=== PATIENT | female | born 1995 | race Caucasian/White ===

== ENCOUNTER 2016-10-11 10:35 | Emergency (ER) | payer OTHER ==
[2016-03-12 05:11] VITALS: BMI 25.6
[~2016-10-11 10:35] MED LIST: FERROUS SULFAT325 MG PO; HYDROCODON-ACE1 EAC7 PO; IBUPROFEN600 MG PO; PRENATAL COMPLE1 TAB PO
[2016-10-11 12:17] LABS: BASOPHILS 0.5 % (0-2); HEMATOCRIT 41.5 % (36.0-48.0); HEMOGLOBIN 14.7 g/dL (12-16); LYMPHOCYTES 30.8 % (15-50); MCH 32.2 pg (26.0-34.0); MCHC 35.4 g/dL (31.0-37.0); MEAN PLATELET VOLUME 10.7 fL (7.4-10.4); MONOCYTES 7.1 % (2-11); NEUTROPHILS 59.6 % (40-80); RBC 4.56 10x6/uL (4.00-5.40); RDW 12.3 % (11.5-14.5); WBC 5.9 10x3/uL (4.8-10.8)
[2016-10-11 12:18] LABS: PLATELET COUNT 237 10x3/uL (130-400)
[2016-10-11 12:37] LABS: HCG SERUM NEGATIVE (NEGATIVE)
[2016-10-11 12:37] LABS: APPEARANCE CLEAR (CLEAR); BILIRUBIN NEGATIVE (NEGATIVE); COLOR DK YELLOW (YELLOW); GLUCOSE NEGATIVE (NEGATIVE); KETONE NEGATIVE (NEGATIVE); LEUKOCYTE ESTERASE NEGATIVE (NEGATIVE); NITRITE NEGATIVE (NEGATIVE); PROTEIN TRACE mg/dL (NEGATIVE); UROBILINOGEN NORMAL (NORMAL)
[2016-10-11 12:40] LABS: ALBUMIN 4.4 g/dL (3.4-5.0); ALKALINE PHOSPHATASE 74 U/L (46-116); ALT (SGPT) 21 U/L (10-68); BILIRUBIN - TOTAL 0.73 mg/dL (0.2-1.3); CALC OSMOLALITY 277 mosm/kg (275-300); CALCIUM 9.4 mg/dL (8.5-10.1); CARBON DIOXIDE 25.1 mmol/L (21.0-32.0); CHLORIDE - SERUM 106 mmol/L (98-107); CREATININE - SERUM 0.8 mg/dL (0.6-1.3); GLUCOSE 106 mg/dL (74-106); POTASSIUM - SERUM 4.4 mmol/L (3.5-5.1); PROTEIN - SERUM 7.7 g/dL (6.4-8.2); SODIUM 140 mmol/L (136-145); UREA NITROGEN 10 mg/dL (7-18); eGFR NON AFRICAN AMERICAN > 90 mL/min (90-120)
[2016-10-11 12:40] LABS: RED CELLS - URINE 0-5 /hpf (0-5); WHITE CELLS - URINE NSEEN /hpf (0-5)
[2016-10-11 12:41] LABS: BACTERIA NONE SEEN /hpf (NONE SEEN); EPITHELIAL CELLS NSEEN /hpf (0-5)
== END 2016-10-11 15:31 | disposition home or self-care (01) ==
LOC: D.ER 10:35
PROVIDERS: Emergency Medicine
DX: N73.0 Acute parametritis and pelvic cellulitis (principal); N76.0 Acute vaginitis; F17.200 Nicotine dependence, unspecified, uncomplicated

== ENCOUNTER 2017-01-06 23:42 | Emergency (ER) | payer OTHER ==
[2016-03-12 05:11] VITALS: BMI 25.6
== END 2017-01-07 01:11 | disposition home or self-care (01) ==
LOC: D.ER 23:42
DX: N93.9 Abnormal uterine and vaginal bleeding, unspecified (principal); F17.200 Nicotine dependence, unspecified, uncomplicated

== ENCOUNTER 2017-05-08 11:11 | Emergency (ER) | payer SELFPAY ==
[2016-03-12 05:11] VITALS: BMI 25.6
== END 2017-05-08 11:21 | disposition home or self-care (01) ==
LOC: D.ER 11:11
DX: Z02.9 Encounter for administrative examinations, unspecified (principal)

== ENCOUNTER 2017-12-08 19:37 | Emergency (ER) | payer MEDICAID ==
[~2017-12-08] VITALS: Ht 157.5 cm; Wt 54.4 kg
[2017-12-08 20:10] VITALS: Ht 157.5 cm; Wt 54.4 kg
[2017-12-08 20:47] LABS: BASOPHILS 0.3 % (0-2); EOSINOPHILS 1.3 % (0-7); HEMATOCRIT 42.7 % (36.0-48.0); HEMOGLOBIN 15.6 g/dL (12-16); IMMATURE GRANULOCYTES 0.3 % (0-5); LYMPHOCYTES 21.2 % (15-50); MCH 32.8 pg (26.0-34.0); MCHC 36.5 g/dL (31.0-37.0); MCV 89.9 fL (80.0-100.0); MEAN PLATELET VOLUME 10.6 fL (7.4-10.4); MONOCYTES 3.8 % (2-11); NEUTROPHILS 73.1 % (40-80); PLATELET COUNT 269 10x3/uL (130-400); RBC 4.75 10x6/uL (4.00-5.40); RDW 12.3 % (11.5-14.5); WBC 9.8 10x3/uL (4.8-10.8)
[2017-12-08 20:49] LABS: APPEARANCE CLEAR (CLEAR); BILIRUBIN NEGATIVE (NEGATIVE); COLOR YELLOW (YELLOW); GLUCOSE NEGATIVE (NEGATIVE); KETONE NEGATIVE (NEGATIVE); NITRITE NEGATIVE (NEGATIVE); PROTEIN NEGATIVE (NEGATIVE); UROBILINOGEN NORMAL (NORMAL)
[2017-12-08 20:51] LABS: WHITE CELLS - URINE 0-5 /hpf (0-5)
[2017-12-08 20:52] LABS: BACTERIA FEW /hpf (NONE SEEN); EPITHELIAL CELLS 0-5 /hpf (0-5); RED CELLS - URINE 0-5 /hpf (0-5)
[2017-12-08 21:01] LABS: HCG SERUM POSITIVE (NEGATIVE)
[2017-12-08 21:21] LABS: ALBUMIN 4.4 g/dL (3.4-5.0); ALKALINE PHOSPHATASE 64 U/L (46-116); ALT (SGPT) 23 U/L (10-68); BILIRUBIN - TOTAL 0.63 mg/dL (0.2-1.3); CALC OSMOLALITY 264 mosm/kg (275-300); CALCIUM 8.4 mg/dL (8.5-10.1); CARBON DIOXIDE 26.1 mmol/L (21.0-32.0); CHLORIDE - SERUM 98 mmol/L (98-107); CREATININE - SERUM 0.9 mg/dL (0.6-1.3); GLUCOSE 135 mg/dL (74-106); LIPASE 80 U/L (73-393); POTASSIUM - SERUM 3.8 mmol/L (3.5-5.1); SODIUM 132 mmol/L (136-145); UREA NITROGEN 8 mg/dL (7-18); eGFR NON AFRICAN AMERICAN 83 mL/min (90-120)
[2017-12-08 21:41] VITALS: BP 154/87
== END 2017-12-08 21:42 | disposition home or self-care (01) ==
LOC: D.ER 19:37
PROVIDERS: Family Medicine
DX: Z33.1 Pregnant state, incidental (principal); R11.10 Vomiting, unspecified

== ENCOUNTER 2017-12-28 17:30 | Emergency (ER) | payer MEDICAID ==
[~2017-12-28] VITALS: Ht 157.5 cm; Wt 54.5 kg
[2017-12-28 17:37] VITALS: Ht 157.5 cm; Wt 54.5 kg
[2017-12-28 18:23] LABS: APPEARANCE SL CLDY (CLEAR); BILIRUBIN NEGATIVE (NEGATIVE); COLOR STRAW (YELLOW); GLUCOSE NEGATIVE (NEGATIVE); KETONE NEGATIVE (NEGATIVE); NITRITE NEGATIVE (NEGATIVE); PROTEIN NEGATIVE (NEGATIVE); SPECIFIC GRAVITY 1.005 (1.005-1.020); UROBILINOGEN NORMAL (NORMAL)
[2017-12-28 18:26] LABS: BACTERIA FEW /hpf (NONE SEEN); EPITHELIAL CELLS 0-5 /hpf (0-5); WHITE CELLS - URINE 0-5 /hpf (0-5)
[2017-12-28 18:27] LABS: BASOPHILS 0.3 % (0-2); EOSINOPHILS 1.6 % (0-7); HEMATOCRIT 37.3 % (36.0-48.0); HEMOGLOBIN 13.6 g/dL (12-16); IMMATURE GRANULOCYTES 0.2 % (0-5); LYMPHOCYTES 27.8 % (15-50); MCH 32.8 pg (26.0-34.0); MCHC 36.5 g/dL (31.0-37.0); MCV 89.9 fL (80.0-100.0); MEAN PLATELET VOLUME 10.3 fL (7.4-10.4); MONOCYTES 5.7 % (2-11); NEUTROPHILS 64.4 % (40-80); PLATELET COUNT 236 10x3/uL (130-400); RBC 4.15 10x6/uL (4.00-5.40); RDW 12.8 % (11.5-14.5); WBC 9.5 10x3/uL (4.8-10.8)
[2017-12-28 18:51] LABS: ALBUMIN 3.9 g/dL (3.4-5.0); ALKALINE PHOSPHATASE 46 U/L (46-116); ALT (SGPT) 23 U/L (10-68); BILIRUBIN - TOTAL 0.43 mg/dL (0.2-1.3); CALC OSMOLALITY 272 mosm/kg (275-300); CALCIUM 8.7 mg/dL (8.5-10.1); CARBON DIOXIDE 27.5 mmol/L (21.0-32.0); CHLORIDE - SERUM 103 mmol/L (98-107); CREATININE - SERUM 0.6 mg/dL (0.6-1.3); GLUCOSE 91 mg/dL (74-106); POTASSIUM - SERUM 3.7 mmol/L (3.5-5.1); PROTEIN - SERUM 7.3 g/dL (6.4-8.2); SODIUM 138 mmol/L (136-145); UREA NITROGEN 5 mg/dL (7-18); eGFR NON AFRICAN AMERICAN > 90 mL/min (90-120)
[2017-12-28 19:13] LABS: HCG - QUANTITATIVE (MATERNAL) 76823 mIU/mL
[2017-12-28 21:45] VITALS: BP 116/70
== END 2017-12-28 21:46 | disposition home or self-care (01) ==
LOC: D.ER 17:30
PROVIDERS: Family Medicine
DX: O20.9 Hemorrhage in early pregnancy, unspecified (principal); Z3A.01 Less than 8 weeks gestation of pregnancy

== ENCOUNTER 2018-04-16 20:05 | Emergency (ER) | payer MEDICAID ==
[~2018-04-16] VITALS: Ht 157.5 cm; Wt 54.4 kg
[2018-04-16 20:08] VITALS: Ht 157.5 cm; Wt 54.4 kg
[2018-04-16] MEDS ORDERED: NEO-BACIT-POLY3.5 GM RIGHT EYE (20:31)
[2018-04-16] MEDS ORDERED: KEFLEX500 MG PO (20:31)
[2018-04-16 20:49] VITALS: BP 128/72
== END 2018-04-16 20:49 | disposition home or self-care (01) ==
LOC: D.ER 20:05
DX: O26.892 Other specified pregnancy related conditions, second trimester (principal); Z3A.22 22 weeks gestation of pregnancy; S00.12XA Contusion of left eyelid and periocular area, initial encounter; Y04.2XXA Assault by strike against or bumped into by another person, initial encounter; Y93.89 Activity, other specified; Y92.89 Other specified places as the place of occurrence of the external cause

== ENCOUNTER 2018-10-13 11:49 | Emergency (ER) | payer MEDICAID ==
[~2018-10-13] VITALS: Ht 157.5 cm; Wt 54.5 kg
[~2018-10-13 11:49] MED LIST changes: +KEFLEX500 MG PO; +NEO-BACIT-POLY3.5 GM RIGHT EYE
[2018-10-13 11:55] VITALS: Ht 157.5 cm; Wt 54.5 kg
[2018-10-13] MEDS ORDERED: ULTRAM50 MG PO (15:29)
[2018-10-13 15:51] VITALS: BP 121/61
== END 2018-10-13 15:52 | disposition home or self-care (01) ==
LOC: D.ER 11:49
DX: G44.319 Acute post-traumatic headache, not intractable (principal)

== ENCOUNTER 2019-08-06 14:53 | Emergency (ER) | payer SELFPAY ==
[~2019-08-06] VITALS: Ht 157.5 cm; Wt 56.8 kg
[~2019-08-06 14:53] MED LIST changes: +ULTRAM50 MG PO
[2019-08-06 14:57] VITALS: Ht 157.5 cm; Wt 56.8 kg
[2019-08-06 15:26] LABS: BASOPHILS 0.4 % (0-2); EOSINOPHILS 4.2 % (0-7); HEMATOCRIT 38.8 % (36.0-48.0); HEMOGLOBIN 13.7 g/dL (12-16); IMMATURE GRANULOCYTES 0.1 % (0-5); LYMPHOCYTES 28.6 % (15-50); MCH 32.6 pg (26.0-34.0); MCHC 35.3 g/dL (31.0-37.0); MCV 92.4 fL (80.0-100.0); MEAN PLATELET VOLUME 10.4 fL (7.4-10.4); MONOCYTES 4.7 % (2-11); PLATELET COUNT 273 10x3/uL (130-400); RDW 12.4 % (11.5-14.5); WBC 7.3 10x3/uL (4.8-10.8)
[2019-08-06 15:35] LABS: CALC OSMOLALITY 270 mosm/kg (275-300); CALCIUM 8.7 mg/dL (8.5-10.1); CARBON DIOXIDE 27.8 mmol/L (21.0-32.0); CHLORIDE - SERUM 102 mmol/L (98-107); CREATININE - SERUM 0.7 mg/dL (0.6-1.3); GLUCOSE 89 mg/dL (74-106); POTASSIUM - SERUM 3.8 mmol/L (3.5-5.1); SODIUM 137 mmol/L (136-145); UREA NITROGEN 7 mg/dL (7-18); eGFR NON AFRICAN AMERICAN > 90 mL/min (90-120)
[2019-08-06 16:03] LABS: ALBUMIN 4.2 g/dL (3.4-5.0); ALKALINE PHOSPHATASE 62 U/L (30-120); ALT (SGPT) 22 U/L (10-68); BILIRUBIN - TOTAL 0.58 mg/dL (0.2-1.3); HCG - QUANTITATIVE (MATERNAL) 4504 mIU/mL; PROTEIN - SERUM 7.7 g/dL (6.4-8.2)
[2019-08-06 16:05] LABS: HCG SERUM POSITIVE (NEGATIVE)
[2019-08-06 17:49] VITALS: BP 114/63
== END 2019-08-06 17:50 | disposition home or self-care (01) ==
LOC: D.ER 14:53
PROVIDERS: Emergency Medicine
DX: O03.4 Incomplete spontaneous abortion without complication (principal)

== ENCOUNTER 2020-02-01 00:38 | Emergency (ER) | payer MEDICAID ==
[~2020-02-01] VITALS: Ht 157.5 cm; Wt 52.3 kg
[2020-02-01 00:43] VITALS: Ht 157.5 cm; Wt 52.3 kg
[2020-02-01] MEDS ORDERED: STERAPRED DS 1010 MG PO (00:58)
[2020-02-01] MEDS ORDERED: AMOXICILLIN500 M1 PO (00:58)
[2020-02-01 01:31] VITALS: BP 122/78
== END 2020-02-01 01:32 | disposition home or self-care (01) ==
LOC: D.ER 00:38
DX: J02.9 Acute pharyngitis, unspecified (principal); Z72.0 Tobacco use

== ENCOUNTER 2020-07-19 22:44 | Emergency (ER) | payer MEDICAID ==
[~2020-07-19] VITALS: Ht 157.5 cm; Wt 52.3 kg
[~2020-07-19 22:44] MED LIST changes: +AMOXICILLIN500 M1 PO; +STERAPRED DS 1010 MG PO
[2020-07-19 22:48] VITALS: Ht 157.5 cm; Wt 52.3 kg
[2020-07-19 23:34] LABS: BILIRUBIN NEGATIVE (NEGATIVE); KETONE SMALL mg/dL (NEGATIVE); NITRITE NEGATIVE (NEGATIVE); UROBILINOGEN NORMAL mg/dL (< 2)
[2020-07-19 23:44] LABS: BASOPHILS 0.4 % (0-2); EOSINOPHILS 2.9 % (0-7); HEMATOCRIT 37.9 % (36.0-48.0); HEMOGLOBIN 13.3 g/dL (12-16); IMMATURE GRANULOCYTES 0.1 % (0-5); LYMPHOCYTE ABS# 2.45 10x3/uL (1.18-3.74); LYMPHOCYTES 33.9 % (15-50); MCHC 35.1 g/dL (31.0-37.0); MCV 91.1 fL (80.0-100.0); MEAN PLATELET VOLUME 10.3 fL (7.4-10.4); MONOCYTES 6.9 % (2-11); NEUTROPHIL ABS# 4.03 10x3/uL (1.56-6.13); NEUTROPHILS 55.8 % (40-80); PLATELET COUNT 270 10x3/uL (130-400); RBC 4.16 10x6/uL (4.00-5.40); WBC 7.2 10x3/uL (4.8-10.8)
[2020-07-19 23:51] LABS: HCG SERUM POSITIVE (NEGATIVE)
[2020-07-19 23:57] LABS: CALC OSMOLALITY 271 mosm/kg (275-300); CALCIUM 9.2 mg/dL (8.5-10.1); CARBON DIOXIDE 25.3 mmol/L (21.0-32.0); CHLORIDE - SERUM 101 mmol/L (98-107); CREATININE - SERUM 0.7 mg/dL (0.6-1.3); GLUCOSE 90 mg/dL (74-106); POTASSIUM - SERUM 3.5 mmol/L (3.5-5.1); SODIUM 137 mmol/L (136-145); UREA NITROGEN 7 mg/dL (7-18); eGFR NON AFRICAN AMERICAN > 90 mL/min (90-120)
[2020-07-20 00:29] LABS: ALBUMIN 4.4 g/dL (3.4-5.0); ALKALINE PHOSPHATASE 57 U/L (30-120); ALT (SGPT) 22 U/L (10-68); BILIRUBIN - TOTAL 0.65 mg/dL (0.2-1.3); HCG - QUANTITATIVE (MATERNAL) 67840 mIU/mL; PROTEIN - SERUM 7.8 g/dL (6.4-8.2)
[2020-07-20] MEDS ORDERED: VITAMIN B-625 MG PO (02:01)
[2020-07-20 02:29] VITALS: BP 110/75
== END 2020-07-20 02:29 | disposition home or self-care (01) ==
LOC: D.ER 22:44
PROVIDERS: Family Medicine
DX: O26.851 Spotting complicating pregnancy, first trimester (principal); Z3A.01 Less than 8 weeks gestation of pregnancy